=== PATIENT | male | born 1965 | race Caucasian/White ===

== ENCOUNTER 2020-05-24 06:13 | Day surgery (SDC) | payer OTHER ==
[2020-05-19 13:28] VITALS: BMI 27.0
[2020-05-24] MEDS ORDERED: TAMSULOSIN HCL 0.4 MG CAP ONE (06:34)
[2020-05-24] MEDS ORDERED: ROPIVACAINE HCL 0.5% 30ML VIAL ONE (06:55)
[2020-05-24] MEDS ORDERED: MIDAZOLAM HCL 2 MG/2 ML SINGLE DOSE VIAL ONE (06:55)
[2020-05-24] MEDS ORDERED: LIDOCAINE HCL/PF 2% SDV 5ML VIAL ONE (07:08)
[2020-05-24] MEDS ORDERED: PROPOFOL 20 ML ONE (07:08)
[2020-05-24] MEDS ORDERED: SCOPOLAMINE HYDROBROMIDE 1 PATCH PATCH.TD72 ONE (07:31)
[2020-05-24] MEDS ORDERED: ceFAZolin SODIUM 1 GM VIAL ONE (08:11)
[2020-05-24] MEDS ORDERED: ONDANSETRON 4 MG/2 ML VIAL ONE (08:11)
[2020-05-24] MEDS ORDERED: DEXAMETHASONE SOD PHOSPHATE 4 MG/1 ML VIAL ONE (08:11)
[2020-05-24] MEDS ORDERED: ONDANSETRON 4 MG/2 ML VIAL IVPUSH PRN (09:03)
[2020-05-24] MEDS ORDERED: oxyCODONE HCL 5 MG TABLET PO PRN ×2 (09:03)
[2020-05-24] MEDS ORDERED: LACTATED RINGERS SOLUTION 1,000 ML IV SCH (09:15)
[2020-05-24] MEDS ORDERED: oxyCODONE HCL 5 MG TABLET ONE (10:44)
[2020-05-24 11:21] VITALS: TEMP 97.8
[2020-05-24 14:20] VITALS: BP 116/60; PULSE 62
== END 2020-05-24 14:59 | disposition home or self-care (01) ==
LOC: FASU 06:13
PROVIDERS: ATTEND Surgery
PROC: 0YU60JZ Supplement Left Inguinal Region with Synthetic Substitute, Open Approach (ICD-10-PCS; principal; 2020-05-24 08:01)
DX: K40.91 Unilateral inguinal hernia, without obstruction or gangrene, recurrent (principal)
CPT/HCPCS: 94760

== ENCOUNTER 2021-03-14 15:28 | Emergency (ER) | payer OTHER ==
[2021-03-15 07:08] LABS: SARS-CoV-2 NAA Not Detected (Not Detected)
== END 2021-03-14 16:02 | disposition home or self-care (01) ==
LOC: JVIRT 15:28
DX: Z20.822 Contact with and (suspected) exposure to COVID-19 (principal)
CPT/HCPCS: C9803; G2251-GT; U0003; U0005